=== PATIENT | female | born 1985 | race Caucasian/White ===

== ENCOUNTER 2017-03-07 12:36 | Emergency (ER) | payer MEDICAID ==
[~2017-03-07] VITALS: Ht 165.1 cm; Wt 83.0 kg
[2017-03-07 16:22] LABS: BASOPHIL % 0.2 % (0-2); PLATELET COUNT 283 x10^3mcL (130-400); RED CELL DISTRIBUTION WIDTH 13.2 % (11.5-14.5)
[2017-03-07 16:32] LABS: CALCIUM 8.6 mg/dL (8.5-10.1); CHLORIDE SERUM 102 mmol/L (98-107); CREATININE SERUM 0.6 mg/dL (0.6-1.0); GFR1 > 60 mL/min; GLUCOSE SERUM 90 mg/dL (74-106); POTASSIUM SERUM 3.8 mmol/L (3.5-5.1); SODIUM SERUM 136 mmol/L (136-145)
[2017-03-07 16:38] LABS: ALBUMIN 3.3 g/dL (3.4-5.0); ALKALINE PHOSPHATASE 75 U/L (46-116); ALT/SGPT 21 U/L (14-59); AST/SGOT 17 U/L (15-37); BILIRUBIN TOTAL 0.78 mg/dL (0.20-1.00); LIPASE 122 IU/L (73-393); TOTAL PROTEIN, SERUM 7.5 g/dL (6.4-8.2)
[2017-03-07 16:58] LABS: UA SPECIFIC GRAVITY 1.015 (1.005-1.035); microscopic required? YES; urine erythrocyte TRACE (NEGATIVE)
[2017-03-07 18:49] VITALS: BP 106/71
== END 2017-03-07 18:49 | disposition home or self-care (01) ==
LOC: ED 12:36
PROVIDERS: Emergency Medicine
DX: O21.1 Hyperemesis gravidarum with metabolic disturbance (principal); Z3A.09 9 weeks gestation of pregnancy
CPT/HCPCS: 83880; J1200; J2765; J3490; J7030

== ENCOUNTER → 2020-02-08 | Outpatient (CLI) | payer OTHER | END | disposition home or self-care (01) | LOC: CT 09:56 | PROVIDERS: ATTEND Family Medicine | DX: R51 Headache (principal); R42 Dizziness and giddiness ==

== ENCOUNTER → 2020-02-28 | Outpatient (CLI) | payer OTHER ==
[2020-02-28 08:11] LABS: microscopic required? NO
[2020-02-28 08:27] LABS: BASOPHIL % 0.4 % (0-2); PLATELET COUNT 314 x10^3mcL (130-400); RED CELL DISTRIBUTION WIDTH 12.9 % (11.5-14.5)
[2020-02-28 08:40] LABS: ALBUMIN 3.9 g/dL (3.4-5.0); ALKALINE PHOSPHATASE 103 U/L (46-116); ALT/SGPT 72 U/L (14-59); AST/SGOT 44 U/L (15-37); BILIRUBIN TOTAL 0.64 mg/dL (0.20-1.00); CALCIUM 8.9 mg/dL (8.5-10.1); CARBON DIOXIDE 26.8 mmol/L (21-32); CHLORIDE SERUM 103 mmol/L (98-107); CHOLESTEROL 175 mg/dL (<200); CHOLESTEROL/HDL RATIO 3.8; CREATININE SERUM 0.8 mg/dL (0.6-1.0); GFR1 > 60 mL/min; GLUCOSE SERUM 126 mg/dL (74-106); HDL CHOLESTEROL 46 mg/dL (40-60); SODIUM SERUM 137 mmol/L (136-145); TOTAL PROTEIN, SERUM 7.9 g/dL (6.4-8.2); TRIGLYCERIDES 125 mg/dL (<150)
[2020-02-28 08:40] LABS: urine erythrocyte NEGATIVE (NEGATIVE)
[2020-02-28 13:52] LABS: ERYTHROCYTE SED RATE 14 mm/hr (0-20)
== END | disposition home or self-care (01) ==
LOC: LB 08:04
PROVIDERS: ATTEND Family Medicine
DX: R51 Headache (principal)

== ENCOUNTER → 2020-04-15 | Outpatient (CLI) | payer OTHER | END | disposition home or self-care (01) | LOC: CT 08:55 | PROVIDERS: ATTEND Family Medicine | PROC: BW28ZZZ Computerized Tomography (CT Scan) of Head (ICD-10-PCS; principal; 2020-04-15) | DX: R51 Headache (principal); R42 Dizziness and giddiness ==

== ENCOUNTER → 2020-04-16 | Outpatient (CLI) | payer OTHER ==
[2020-04-16 13:11] LABS: FREE T4 1.01 ng/dL (0.76-1.46); FREE THYROXINE INDEX 2.2 ug/dL (1.4-4.5); T4(THYROXINE) 6.9 ug/dL (4.7-13.3)
[2020-04-16 13:26] LABS: T3 TOTAL 1.43 ng/mL
== END | disposition home or self-care (01) ==
LOC: LB 12:12
PROVIDERS: ATTEND Family Medicine
DX: R00.2 Palpitations (principal)
CPT/HCPCS: 84439

== ENCOUNTER 2020-06-11 06:44 | Emergency (ER) | payer OTHER ==
[~2020-06-11] VITALS: Ht 165.1 cm; Wt 93.0 kg
[2020-06-11 06:47] VITALS: BP 143/96; Ht 165.1 cm; Wt 93.0 kg
== END 2020-06-11 07:46 | disposition home or self-care (01) ==
LOC: ED 06:44
DX: U07.1 COVID-19 (principal)
CPT/HCPCS: U0003

== ENCOUNTER 2020-06-17 12:39 | Emergency (ER) | payer OTHER ==
[~2020-06-17] VITALS: Ht 165.1 cm; Wt 90.7 kg
[2020-06-17 12:56] VITALS: BP 121/78; Ht 165.1 cm; Wt 90.7 kg
== END 2020-06-17 14:59 | disposition home or self-care (01) ==
LOC: ED 12:39
DX: U07.1 COVID-19 (principal); J12.89 Other viral pneumonia; Z88.2 Allergy status to sulfonamides; Z88.6 Allergy status to analgesic agent; Z98.890 Other specified postprocedural states
CPT/HCPCS: 36600

== ENCOUNTER → 2020-08-26 | Outpatient (CLI) | payer OTHER ==
[2020-08-26 08:34] LABS: microscopic required? NO
[2020-08-26 08:57] LABS: RED CELL DISTRIBUTION WIDTH 14.4 % (12.3-17.7)
[2020-08-26 08:59] LABS: BASOPHIL % 0.5 % (0.2-1.3); PLATELET COUNT 353 x10^3mcL (179-408)
[2020-08-26 09:17] LABS: rbc morphology (normal/abnorm) NORMAL (NORMAL)
[2020-08-26 09:23] LABS: CHOLESTEROL 149 mg/dL (<200); CHOLESTEROL/HDL RATIO 3.5; HDL CHOLESTEROL 43 mg/dL (40-60); TRIGLYCERIDES 92 mg/dL (<150)
[2020-08-26 09:47] LABS: urine erythrocyte NEGATIVE (NEGATIVE)
== END | disposition home or self-care (01) ==
LOC: LB 08:19
PROVIDERS: ATTEND Family Medicine
DX: R74.8 Abnormal levels of other serum enzymes (principal); R81 Glycosuria; N39.0 Urinary tract infection, site not specified; E78.5 Hyperlipidemia, unspecified

== ENCOUNTER → 2020-09-22 | Outpatient (CLI) | payer OTHER ==
[2020-09-22 10:16] LABS: BASOPHIL % 0.7 % (0.2-1.3); PLATELET COUNT 330 x10^3mcL (179-408); RED CELL DISTRIBUTION WIDTH 13.8 % (12.3-17.7)
[2020-09-22 11:54] LABS: AMPHETAMINE QUAL UR NONE DETECTED (See below)
[2020-09-23 08:06] LABS: RAPID PLASMA REAGIN Non Reactive (Non Reactive)
== END | disposition home or self-care (01) ==
LOC: LB 09:38
PROVIDERS: ATTEND Obstetrics & Gynecology
DX: Z36.9 Encounter for antenatal screening, unspecified (principal); Z36.0 Encounter for antenatal screening for chromosomal anomalies; Z36.8A Encounter for antenatal screening for other genetic defects
CPT/HCPCS: 87491; 87591

== ENCOUNTER → 2020-10-08 | Outpatient (CLI) | payer OTHER | END | disposition home or self-care (01) | LOC: LB 17:31 | PROVIDERS: ATTEND Obstetrics & Gynecology | DX: O36.80X9 Pregnancy with inconclusive fetal viability, other fetus (principal); M79.604 Pain in right leg | CPT/HCPCS: 85378 ==

== ENCOUNTER → 2020-10-09 | Outpatient (CLI) | payer OTHER | END | disposition home or self-care (01) | LOC: US 07:59 | PROC: B54BZZZ Ultrasonography of Right Lower Extremity Veins (ICD-10-PCS; principal; 2020-10-09) | DX: M79.604 Pain in right leg (principal) ==

== ENCOUNTER → 2020-10-13 | Outpatient (CLI) | payer OTHER | END | disposition home or self-care (01) | LOC: LB 07:16 | PROVIDERS: ATTEND Obstetrics & Gynecology | DX: O36.80X9 Pregnancy with inconclusive fetal viability, other fetus (principal) ==